=== PATIENT | female | born 1950 | race Two or more races ===

== ENCOUNTER 2017-07-17 09:26 | Outpatient (CLI) | payer OTHER | END 2017-07-17 14:11 | disposition home or self-care (01) | LOC: SONOGRAMA 09:26 | DX: M25.511 Pain in right shoulder (principal); M25.512 Pain in left shoulder ==

== ENCOUNTER 2018-08-30 06:35 | Day surgery (SDC) | payer OTHER | END 2018-08-30 10:40 | disposition home or self-care (01) | LOC: AMB-ENDOS 06:35 | DX: D12.8 Benign neoplasm of rectum (principal) ==

== ENCOUNTER 2021-07-07 12:30 | Inpatient (IN) | payer OTHER ==
[~2021-07-07] VITALS: Ht 160 cm; Wt 77.1 kg
[2021-07-08] MEDS ORDERED: GLIPIZIDE XL10 MG PO (09:20)
[2021-07-08] MEDS ORDERED: ZETIA10 MG PO (09:20)
[2021-07-08] MEDS ORDERED: COZAAR25 MG PO (09:20)
[2021-07-08] MEDS ORDERED: AMIODARONE HCL100 MG PO (09:21)
[2021-07-08] MEDS ORDERED: SIMVASTATIN10 MG PO (09:21)
[2021-07-08] MEDS ORDERED: METFORMIN HCL500 M3 PO (09:21)
[2021-07-08] MEDS ORDERED: XARELTO20 MG PO (09:21)
[2021-07-08] MEDS ORDERED: PROTONIX20 MG PO (09:22)
[2021-07-12] MEDS ORDERED: LATANOPROST2.5 ML (10:20)
[2021-07-12] MEDS ORDERED: LEVALBUTEROL TA15 GM (10:21)
[2021-07-12] MEDS ORDERED: JANUVIA100 MG (10:21)
[2021-07-13] MEDS ORDERED: LEVSIN/SL0.125 MG SL (07:31)
[2021-07-13] MEDS ORDERED: INTESTINEX680 M1 PO (07:31)
== END 2021-07-13 12:40 | disposition home or self-care (01) | DRG 395 ==
LOC: SURH 07-12 05:55 → O/R 07-12 05:55 → SURH 07-12 11:00 → SURG 07-12 11:25 → SURH 07-12 12:30
PROVIDERS: ADMIT Surgery; ATTEND Surgery
PROC: 0DBL8ZX Excision of Transverse Colon, Via Natural or Artificial Opening Endoscopic, Diagnostic (ICD-10-PCS; 2021-07-12)
PROC: 4A12X4Z Monitoring of Cardiac Electrical Activity, External Approach (ICD-10-PCS; 2021-07-12)
PROC: 0DBP8ZZ Excision of Rectum, Via Natural or Artificial Opening Endoscopic (ICD-10-PCS; principal; 2021-07-12 11:00)
DX: K64.2 Third degree hemorrhoids (principal); D12.8 Benign neoplasm of rectum; D12.3 Benign neoplasm of transverse colon; I11.9 Hypertensive heart disease without heart failure; I48.0 Paroxysmal atrial fibrillation; E11.51 Type 2 diabetes mellitus with diabetic peripheral angiopathy without gangrene